=== PATIENT | male | born 1940 | race African-American/Black ===

== ENCOUNTER 2017-05-25 20:18 | Inpatient (IN) | payer MEDICARE, OTHER ==
[~2017-05-25] VITALS: Ht 165.1 cm; Wt 77.1 kg
--- NOTE | 2017-05-25 20:20 | NUR ---
PT BIB PA WITH A C/O AGGITATED BEHAVIOR AT THE [facility]F. PT WAS AGGRESSIVE TOWARDS STAFF. PT IS CALM AND COOPERATIVE. PT WAS NOT ABLE TO GIVE A URINE SAMPLE. PT WENT TO BED #2. PT IS ON THE MONITOR AND CONTINOUS PULSE OX.
[2017-05-25 20:59] LABS: BASOPHILS # (AUTO) 0.1 /CMM (0.0-0.2); BASOPHILS % (AUTO) 1.7 % (0.0-2.0); EOSINOPHILS # (AUTO) 0.1 /CMM (0.0-0.7); EOSINOPHILS % (AUTO) 1.7 % (0.0-6.0); HEMATOCRIT 36 % (39-51); HEMOGLOBIN 11.9 g/dL (13.5-17.5); LYMPHOCYTES # (AUTO) 1.5 /CMM (0.8-4.8); LYMPHOCYTES % (AUTO) 37.3 % (20.0-44.0); MEAN CORPUSCULAR HEMOGLOBIN 30 PG (26.0-33.0); MEAN CORPUSCULAR HGB CONC 33 g/dl (31.0-36.0); MEAN CORPUSCULAR VOLUME 91 fL (80-96); MONOCYTES # (AUTO) 0.5 /CMM (0.1-1.30); MONOCYTES % (AUTO) 11.5 % (2.0-12.0); NEUTROPHILS # (AUTO) 1.8 /CMM (1.8-8.9); NEUTROPHILS % (AUTO) 47.8 % (43.0-81.0); PLATELET COUNT (AUTO) 187 /CMM (150-450); RDW COEFFICIENT OF VARIATION 12.2 (11.5-15.0); RED BLOOD CELL COUNT(AUTO) 4.01 MIL/uL (4.5-6.0)
--- NOTE | 2017-05-25 21:08 | NUR ---
PT IS UNABLE TO GIVE A URINE SAMPLE AT THIS TIME. PT HAS URINAL AT THE BEDSIDE.
--- NOTE | 2017-05-25 21:08 | NUR ---
DR. CROFT IS AT THE BEDSIDE SPEAKING TO THE PT.
[2017-05-25] MEDS ORDERED: LIDOCAINE 2% JEL UROJET 10 ML MM ONE (21:09)
[2017-05-25 21:10] LABS: CALCIUM, SERUM 8.9 mg/dL (8.5-10.1); CARBON DIOXIDE 31 mmol/L (21-32); CHLORIDE 105 mmol/L (98-107); CREATININE 1.4 mg/dL (0.6-1.3); GLUCOSE 88 mg/dL (74-106); POTASSIUM 4.2 mmol/L (3.5-5.1); SODIUM SERUM 139 mmol/L (136-145); UREA NITROGEN, BLOOD 22 mg/dL (7-18)
[2017-05-25 21:15] LABS: ALANINE AMINOTRANSFERASE 25 U/L (12-78); ALBUMIN 3.2 g/dL (3.4-5.0); ALCOHOL, BLOOD < 3 mg/dL (0-0); ALKALINE PHOSPHATASE 77 U/L (46-116); ASPARTATE AMINOTRANSFERASE 20 U/L (15-37); BILIRUBIN,DIRECT 0.1 mg/dL (0.0-0.2); BILIRUBIN,TOTAL 0.2 mg/dL (0.2-1.0); TOTAL PROTEIN, SERUM 6.8 g/dL (6.4-8.2)
[2017-05-25 21:30] LABS: APPEARANCE,URINE Clear (CLEAR); BILIRUBIN,URINE Negative (NEGATIVE); BLOOD, URINE Negative Ery/uL (NEGATIVE); COLOR,URINE Yellow (YELLOW); KETONES,URINE Trace (NEGATIVE); LEUKOCYTE ESTERASE ,URINE Negative (NEGATIVE); NITRITE, URINE Negative (NEGATIVE); PROTEIN,URINE Negative (NEGATIVE); UGLUCOSE Negative (NEGATIVE)
--- NOTE | 2017-05-25 22:02 | NUR ---
CALLED [employer] FOR PSYCH EVAL
[2017-05-25] MEDS ORDERED: MAGN2400 PO (23:06)
[2017-05-25] MEDS ORDERED: DIVA500T2 PO (23:06)
[2017-05-25] MEDS ORDERED: LISI-656 PO (23:06)
[2017-05-25] MEDS ORDERED: AMLO5TAB4 PO (23:06)
[2017-05-25] MEDS ORDERED: DOCU-170 PO (23:06)
[2017-05-25] MEDS ORDERED: MULT-1185 PO (23:06)
[2017-05-25] MEDS ORDERED: TYL2T PO (23:06)
[2017-05-25] MEDS ORDERED: MEMA10TA PO (23:06)
[2017-05-25] MEDS ORDERED: ACETAMINOPHEN 325 MG TABLET PO PRN (23:30)
[2017-05-25] MEDS ORDERED: MAG HYDROX/AL HYDROX/SIMETH 30 ML UDC PO PRN (23:30)
[2017-05-25] MEDS ORDERED: MAGNESIUM HYDROXIDE 30 ML UDC PO PRN (23:30)
--- NOTE | 2017-05-25 23:30 | NUR ---
ADMITTED A 76 Y/0 MALE FROM [facility], ON 5150 HOLD, GD, BASED ON HOLD, PATIENT AGITATED, AGGRESSIVE, COMBATIVE TOWARDS STAFF, WANDERING AND REFUSING CARE. PATIENT ADMITTING DX. PSYCHOSIS AND MEDICAL DX. OF HYPERTENSION, DEMENTIA, ALZHEIMERS. UPON FACE TO FACE EVALUATION, PATIENT APPEARED ALERT AND ORIENTED X 1, CONFUSED, CALM, GUARDED, APPEARED DEPRESSED, WITHDRAWN, NO AGITATION, HEAD TO TOE ASSESSMENT DONE AND PICTURE TAKEN. PATIENT HAS NO SOB, NO ACUTE DISTRESS, BREATHING EVEN AND UNLABORED, NO S/S OF PAIN AND DISCOMFORT AT THIS TIME, ALL BELONGINGS AND CONTRABAND INSPECTED AND COLLECTED. PATIENT UNABLE TO SIGN PAPER WORKS. PATIENT IS UNDER THE CARE OF DR. HENDRIX. NOTIFIED DR. HENDRIX AND DR. YEAGER TO RECONCILE THE MEDICATION. KEPT CLEAN, DRY AND COMFORTABLE, WILL CONTINUE TO MONITOR [id number] FOR SAFETY
[2017-05-25 23:56] VITALS: BP 155/79
[2017-05-26 08:00] VITALS: BP 126/74
[2017-05-26 10:16] LABS: ALANINE AMINOTRANSFERASE 23 U/L (12-78); ALBUMIN 3.5 g/dL (3.4-5.0); ALKALINE PHOSPHATASE 60 U/L (46-116); ASPARTATE AMINOTRANSFERASE 18 U/L (15-37); BILIRUBIN,TOTAL 0.5 mg/dL (0.2-1.0); CALCIUM, SERUM 9.4 mg/dL (8.5-10.1); CARBON DIOXIDE 34 mmol/L (21-32); CHLORIDE 104 mmol/L (98-107); CREATININE 1.1 mg/dL (0.6-1.3); GLUCOSE 101 mg/dL (74-106); SODIUM SERUM 141 mmol/L (136-145); TOTAL PROTEIN, SERUM 7.4 g/dL (6.4-8.2); UREA NITROGEN, BLOOD 16 mg/dL (7-18)
[2017-05-26 10:17] LABS: CHOLESTEROL 203 mg/dL (<200); HDL CHOLESTEROL 56 mg/dL (40-60); LDL 116 mg/dL (0-99); TRIGLYCERIDES 69 mg/dL (30-150)
[2017-05-26] MEDS ORDERED: ACETAMINOPHEN 325 MG TABLET PO PRN (12:30)
[2017-05-26] MEDS: OLANZAPINE 5 MG/TAB.RAPDIS PO SCH ×2 (14:41→16:39)
[2017-05-26 16:00] VITALS: BP 147/90
[2017-05-26] MEDS: MEMANTINE HCL 5 MG TABLET PO SCH (16:39)
[2017-05-26] MEDS ORDERED: DIVALPROEX SODIUM 500 MG TABLET.DR PO SCH (17:00)
[2017-05-26] MEDS: DIVALPROEX SODIUM 125 MG CAP.SPRINK PO SCH (21:07)
[2017-05-26] MEDS: TEMAZEPAM 7.5 MG CAPSULE PO PRN (22:12)
[2017-05-27 08:00] VITALS: BP 131/87
[2017-05-27] MEDS: DIVALPROEX SODIUM 125 MG CAP.SPRINK PO SCH ×2 (08:29→20:34)
[2017-05-27] MEDS: MULTIVITAMINS,THERAGRAN 1 UDTAB TABLET PO SCH (08:29)
[2017-05-27] MEDS: MEMANTINE HCL 5 MG TABLET PO SCH ×2 (08:29→17:18)
[2017-05-27] MEDS: OLANZAPINE 5 MG/TAB.RAPDIS PO SCH ×3 (08:29→17:18)
[2017-05-27] MEDS: AMLODIPINE BESYLATE 5 MG TABLET PO SCH (08:30)
[2017-05-27] MEDS: LISINOPRIL (5MG) 5 MG TABLET PO SCH (08:30)
[2017-05-27 16:00] VITALS: BP 107/59
[2017-05-27 20:09] VITALS: BP 126/73
[2017-05-28 08:32] VITALS: BP 123/77
[2017-05-28] MEDS: MEMANTINE HCL 5 MG TABLET PO SCH ×2 (08:36→16:38)
[2017-05-28] MEDS: DIVALPROEX SODIUM 125 MG CAP.SPRINK PO SCH ×2 (08:36→22:04)
[2017-05-28] MEDS: MULTIVITAMINS,THERAGRAN 1 UDTAB TABLET PO SCH (08:36)
[2017-05-28] MEDS: OLANZAPINE 5 MG/TAB.RAPDIS PO SCH ×3 (08:37→16:38)
[2017-05-28] MEDS: LISINOPRIL (5MG) 5 MG TABLET PO SCH (08:38)
[2017-05-28] MEDS: AMLODIPINE BESYLATE 5 MG TABLET PO SCH (08:38)
--- NOTE | 2017-05-28 12:22 | NUR ---
Patient resides at [facility] [address] [facility] [address] ([phone]). appliance worker spoke to patient's conservator Awilda Smith ([phone]) who stated that she would like patient to return to [facility]. appliance worker spoke to Flaquita from the facility who confirmed that patient can return upon discharge. appliance worker will help form a safe and proper discharge. Addendum: 05/28/17 at 1223 by MELISSA CRAIG Initial Discharge Plan
[2017-05-28 16:45] VITALS: BP 148/75
--- NOTE | 2017-05-28 17:00 | NUR ---
Assumed care at 1700, pt. was in the dining room, quiet, confused and disoriented, no distress and no agitation noted. Will continue to monitor for safety.
[2017-05-28 20:00] VITALS: BP 155/88
[2017-05-28] MEDS: TEMAZEPAM 7.5 MG CAPSULE PO PRN (22:05)
[2017-05-29 08:00] VITALS: BP 140/83
[2017-05-29] MEDS: MULTIVITAMINS,THERAGRAN 1 UDTAB TABLET PO SCH (09:44)
[2017-05-29] MEDS: MEMANTINE HCL 5 MG TABLET PO SCH ×2 (09:44→17:26)
[2017-05-29] MEDS: DIVALPROEX SODIUM 125 MG CAP.SPRINK PO SCH ×2 (09:44→21:09)
[2017-05-29] MEDS: AMLODIPINE BESYLATE 5 MG TABLET PO SCH (09:44)
[2017-05-29] MEDS: LISINOPRIL (5MG) 5 MG TABLET PO SCH (09:45)
[2017-05-29] MEDS: OLANZAPINE 5 MG/TAB.RAPDIS PO SCH ×3 (09:45→17:27)
[2017-05-29 16:05] VITALS: BP 133/66
[2017-05-29 20:00] VITALS: BP 137/79
[2017-05-30 08:00] VITALS: BP 116/77
[2017-05-30] MEDS: MEMANTINE HCL 5 MG TABLET PO SCH ×2 (09:00→16:39)
[2017-05-30] MEDS: LISINOPRIL (5MG) 5 MG TABLET PO SCH (09:00)
[2017-05-30] MEDS: DIVALPROEX SODIUM 125 MG CAP.SPRINK PO SCH ×2 (09:00→21:20)
[2017-05-30] MEDS: AMLODIPINE BESYLATE 5 MG TABLET PO SCH (09:00)
[2017-05-30] MEDS: MULTIVITAMINS,THERAGRAN 1 UDTAB TABLET PO SCH (09:00)
[2017-05-30] MEDS: OLANZAPINE 5 MG/TAB.RAPDIS PO SCH ×3 (09:00→16:39)
[2017-05-30 16:00] VITALS: BP 147/96
[2017-05-30 20:00] VITALS: BP 132/75
[2017-05-30] MEDS: TEMAZEPAM 7.5 MG CAPSULE PO PRN (21:27)
[2017-05-31 08:19] VITALS: BP 140/83
[2017-05-31] MEDS: DIVALPROEX SODIUM 125 MG CAP.SPRINK PO SCH ×2 (08:56→21:44)
[2017-05-31] MEDS: MEMANTINE HCL 5 MG TABLET PO SCH ×2 (08:57→16:36)
[2017-05-31] MEDS: LISINOPRIL (5MG) 5 MG TABLET PO SCH (08:57)
[2017-05-31] MEDS: MULTIVITAMINS,THERAGRAN 1 UDTAB TABLET PO SCH (08:58)
[2017-05-31] MEDS: AMLODIPINE BESYLATE 5 MG TABLET PO SCH (08:58)
[2017-05-31] MEDS: OLANZAPINE 5 MG/TAB.RAPDIS PO SCH ×3 (08:58→16:36)
--- NOTE | 2017-05-31 10:00 | NUR ---
[id number]: PT IS CONFUSED, DISORIENTED, INCOHERENT, UNABLE TO EXPRESS NEEDS. PT REQUIRES CONSTANT PROMPTING AND CUING TO COMPLETE TASK AT HAND. PT IS ORIENTED TO REALITY. PT IS ABLE TO FOLLOW SIMPLE COMMANDS. WILL CONTINUE TO MONITOR FOR SAFETY AND BEHAVIOR EVERY 15 MINUTES
[2017-05-31 16:00] VITALS: BP 115/74
[2017-05-31 19:50] VITALS: BP 103/60
[2017-05-31] MEDS: TEMAZEPAM 7.5 MG CAPSULE PO PRN (21:44)
[2017-06-01 08:00] VITALS: BP 136/74
[2017-06-01] MEDS: OLANZAPINE 5 MG/TAB.RAPDIS PO SCH ×3 (08:22→16:25)
[2017-06-01] MEDS: MEMANTINE HCL 5 MG TABLET PO SCH ×2 (08:23→16:25)
[2017-06-01] MEDS: MULTIVITAMINS,THERAGRAN 1 UDTAB TABLET PO SCH (08:23)
[2017-06-01] MEDS: LISINOPRIL (5MG) 5 MG TABLET PO SCH (08:23)
[2017-06-01] MEDS: AMLODIPINE BESYLATE 5 MG TABLET PO SCH (08:23)
[2017-06-01] MEDS: DIVALPROEX SODIUM 125 MG CAP.SPRINK PO SCH ×2 (09:36→21:16)
[2017-06-01 16:00] VITALS: BP 149/73
[2017-06-01 19:38] VITALS: BP 119/63
[2017-06-01] MEDS: TEMAZEPAM 7.5 MG CAPSULE PO PRN (21:17)
[2017-06-02 08:00] VITALS: BP 127/79
[2017-06-02] MEDS: DIVALPROEX SODIUM 125 MG CAP.SPRINK PO SCH ×2 (08:31→21:28)
[2017-06-02] MEDS: AMLODIPINE BESYLATE 5 MG TABLET PO SCH (08:32)
[2017-06-02] MEDS: MULTIVITAMINS,THERAGRAN 1 UDTAB TABLET PO SCH (08:32)
[2017-06-02] MEDS: LISINOPRIL (5MG) 5 MG TABLET PO SCH (08:33)
[2017-06-02] MEDS: OLANZAPINE 5 MG/TAB.RAPDIS PO SCH ×2 (08:33→16:30)
[2017-06-02] MEDS: MEMANTINE HCL 5 MG TABLET PO SCH ×2 (08:33→16:30)
[2017-06-02] MEDS: clonazePAM 0.5 MG TABLET PO PRN ×2 (14:00→23:45)
--- NOTE | 2017-06-02 14:00 | NUR ---
[id number]: PT IS ANXIOUS, RESTLESS, DISORIENTED. PT HAS DISORGANIZED THOUGHTS, CONFUSED. GAVE KLONOPIN 0.25 MG PO DUE TO INCREASED ANXIETY AND WILL CONTINUE TO MONITOR FOR EFFECTIVENESS OF MEDICATION.
[2017-06-02 16:00] VITALS: BP 125/90
[2017-06-02 21:11] VITALS: BP 118/87
[2017-06-02] MEDS: TEMAZEPAM 7.5 MG CAPSULE PO PRN (21:28)
--- NOTE | 2017-06-02 23:52 | NUR ---
GPS RN NOTES: NOTED PATIENT TO BE ANXIOUS AND MOVING AROUND. KLONPIN 0.25 MG GIVEN PRN ORDERED. WILL CONTINUE TO MONITOR PATIENT'S MOOD AND BEHAVIOR.
--- NOTE | 2017-06-03 07:30 | NUR ---
ON AM ROUNDS FIND PT. VERY SLEEPY,IN ROOM.
[2017-06-03 08:06] VITALS: BP 110/68
[2017-06-03] MEDS: LISINOPRIL (5MG) 5 MG TABLET PO SCH (09:00)
[2017-06-03] MEDS: AMLODIPINE BESYLATE 5 MG TABLET PO SCH (09:00)
--- NOTE | 2017-06-03 09:00 | NUR ---
SLEPT THROUGH BREAKFAST AND AM MEDS.
[2017-06-03] MEDS: MEMANTINE HCL 5 MG TABLET PO SCH ×2 (10:48→18:01)
[2017-06-03] MEDS: MULTIVITAMINS,THERAGRAN 1 UDTAB TABLET PO SCH (10:48)
[2017-06-03] MEDS: DIVALPROEX SODIUM 125 MG CAP.SPRINK PO SCH ×2 (10:48→21:09)
[2017-06-03] MEDS: OLANZAPINE 5 MG/TAB.RAPDIS PO SCH ×2 (10:49→18:01)
--- NOTE | 2017-06-03 10:49 | NUR ---
HAD TO AWAKEN FOR HIS AM MEDS.PT. THEN ALERT,BUT STILL CONFUSED.
--- NOTE | 2017-06-03 11:05 | NUR ---
PUT IN GUILLERMINA CHAIR IN DINING ROOM,BEING OBSERVED.
--- NOTE | 2017-06-03 11:30 | NUR ---
DR. HENDRIX,DR. ESPINOZA IN TO SEE PT.
[2017-06-03 16:00] VITALS: BP 120/72
--- NOTE | 2017-06-03 16:43 | NUR ---
Per facilities request, jig worker faxed an updated packet to [facility] [address] [facility] [address] ([phone]). jig worker will follow-up.
--- NOTE | 2017-06-03 16:44 | NUR ---
automotive tire worker spoke to patient's conservator Awilda Smith ([phone]) who was requesting updates on the patient and wanted to confirm that he was still in the psychiatric unit. automotive tire worker provided Awilda with the information she was requesting. Awilda was satisfied with the information the [employer] school social science teacher provided and requested to be informed of patient's discharge.
[2017-06-03 20:00] VITALS: BP 139/70
[2017-06-04 08:00] VITALS: BP 140/90
[2017-06-04] MEDS: MULTIVITAMINS,THERAGRAN 1 UDTAB TABLET PO SCH (09:05)
[2017-06-04] MEDS: AMLODIPINE BESYLATE 5 MG TABLET PO SCH (09:05)
[2017-06-04] MEDS: MEMANTINE HCL 5 MG TABLET PO SCH ×2 (09:06→17:32)
[2017-06-04] MEDS: DIVALPROEX SODIUM 125 MG CAP.SPRINK PO SCH ×2 (09:06→20:30)
[2017-06-04] MEDS: LISINOPRIL (5MG) 5 MG TABLET PO SCH (09:06)
[2017-06-04] MEDS: OLANZAPINE 5 MG/TAB.RAPDIS PO SCH ×2 (09:06→17:33)
--- NOTE | 2017-06-04 15:21 | NUR ---
electronic instrument trades worker spoke to patient's conservator Awilda Smith ([phone]) to inform her that patient will be discharged tomorrow 06/05/17 to [place] [id number] [facility] [address] ([phone]). Awilda was agreeable with the discharge plan.
[2017-06-04 16:00] VITALS: BP 107/52
--- NOTE | 2017-06-04 16:19 | NUR ---
paste up worker informed Jodie from [facility] [address] [facility] [address] ([phone]) that patient is being discharged tomorrow and returning to the facility. Facility was agreeable.
[2017-06-04 20:00] VITALS: BP 117/57
[2017-06-04] MEDS: TEMAZEPAM 7.5 MG CAPSULE PO PRN (20:31)
[2017-06-05 08:00] VITALS: BP 136/78
[2017-06-05] MEDS: DIVALPROEX SODIUM 125 MG CAP.SPRINK PO SCH (09:15)
[2017-06-05] MEDS: OLANZAPINE 5 MG/TAB.RAPDIS PO SCH (09:15)
[2017-06-05] MEDS: MULTIVITAMINS,THERAGRAN 1 UDTAB TABLET PO SCH (09:15)
[2017-06-05] MEDS: MEMANTINE HCL 5 MG TABLET PO SCH (09:15)
[2017-06-05 09:16] VITALS: BP 136/78
[2017-06-05] MEDS: LISINOPRIL (5MG) 5 MG TABLET PO SCH (09:16)
[2017-06-05] MEDS: AMLODIPINE BESYLATE 5 MG TABLET PO SCH (09:16)
--- NOTE | 2017-06-05 14:55 | NUR ---
GPS RN: PATIENT'S HOLD DISCONTINUED AND PATIENT DISCHARGED TO [facility] PER DR. HENDRIX'S ORDER. PATIENT'S CONDITION IS STABLE FOR DISCHARGE, VS STABLE, NO BEHAVIORAL ISSUES, NO VERBALIZATIONS OF SI OR HI. ALL BELONGINGS RETURNED TO THE PATIENT, MEDICATIONS RECONCILED AND THE COPY OF THE CURRENT MED LIST PROVIDED TO THE PATIENT. REPORT GIVEN TO ANA LILIA ESCALANTE AT THE FACILITY. PATIENT LEFT THE UNIT ON A GURNEY [facility]IA [facility].
--- NOTE | 2017-06-05 16:00 | NUR ---
Discharge Note: Patient was discharged to [facility] [address] [facility] [address] ([phone]). Via med response. Patient's conservator Awilda Smith ([phone]) was notified and agreeable with the discharge plan. Patient's mood and affect were calm and appropriate upon discharge. Patient denied suicidal and homicidal ideations. Per Jodie at the facility patient will follow-up with psychiatrist Dr. Melchor at the facility, Jodie was unable to provide a contact number for Dr. Melchor. Facilitated info to IDT team who are in agreement with discharge arrangement. The multidisciplinary exitcare form was done, printed, signed, and given to the patient.
== END 2017-06-05 14:55 | DRG 885 ==
LOC: ER 20:20 → GPS 22:49
PROVIDERS: ADMIT Psychiatry & Neurology Psychiatry; ATTEND Psychiatry & Neurology Psychiatry
DX: F29 Unspecified psychosis not due to a substance or known physiological condition (principal); F02.81 Dementia in other diseases classified elsewhere, unspecified severity, with behavioral disturbance; N17.0 Acute kidney failure with tubular necrosis; F01.51 Vascular dementia, unspecified severity, with behavioral disturbance; G30.9 Alzheimer's disease, unspecified; E78.5 Hyperlipidemia, unspecified; D63.8 Anemia in other chronic diseases classified elsewhere; I10 Essential (primary) hypertension; F31.9 Bipolar disorder, unspecified; F41.9 Anxiety disorder, unspecified; Z79.899 Other long term (current) drug therapy; Z73.6 Limitation of activities due to disability
CPT/HCPCS: 36415; 80048-TC; 80053-TC; 80061-TC; 80076-TC; 80164-TC; 80305; 81000-TC; 85025-TC; 87081-TC; A4606; G0480; J3490; Z7610